=== PATIENT | female | born 1995 | race Caucasian/White ===

== ENCOUNTER 2021-09-29 15:48 | Emergency (ER) | payer OTHER, SELFPAY ==
--- NOTE | 2021-09-29 15:58 | ED.LOWEXIN ---
HPI - Extremity Injury (Lower) General Chief Complaint: Extremity Injury, Lower Stated Complaint: RIGHT FOOT PAIN Time Seen by Provider: 09/29/21 15:51 Source: patient Mode of arrival: ambulatory Limitations: no limitations History of Present Illness HPI Narrative: Ms. Baker is a 26-year-old female patient presenting to the clinic today with possible splinter in the right foot. She reports she was able to get part of the splinter out her right foot. States that she was walking on a pool deck without shoes on when this occurred Tetanus is up-to-date per patient Related Data Allergies Allergy/AdvReac Type Severity Reaction Status Date / Time amoxicillin Allergy Intermediate Hives / Verified 09/29/21 15:55 Red Face Review of Systems Review of Systems: Pertinent positives per HPI. Patient denies any fever, chills, rash, headache, visual changes, dizziness, cough, runny nose, sore throat, shortness of breath, chest pain, palpitations, nausea, vomiting, diarrhea, constipation, abdominal pain, or any urinary issues. PMFSH Comments At the time of my signature, I reviewed and agree with the nursing past medical, surgical, social, and family history. There is no relevant family history pertinent to the patient complaint. Exam Narrative: General: Well-developed, well nourished, in no apparent distress Head: Normocephalic, atraumatic. Cardio: Regular rate and rhythm, s1 and s2 normal, no murmur appreciated. Resp: Clear to auscultation bilaterally, no rhonchi, rales, wheezing or rubs. Integumentary: [place], warm, and dry, intact without lesion, wood splinter foreign body in the right midfoot. Mild redness and tenderness around the puncture wound, no discharge Course Course Emergency Course: Portions of this record may have been created with voice recognition software. Level of Care: Express Care Visit Vital Signs Vital signs: Vital signs reviewed Procedures Foreign Body Removal Foreign Body #1: Foreign Body Removal Date: 09/29/21 Site: right and foot Description of foreign body: other (Wood splinter) Technique: removal with forceps and incision made to facilitate removal Confirmed by:: direct visualization and patient report Complications: none Post-procedure exam: awake, alert Neurovascular: no change from pre-procedure Foreign Body Removal Narrative: Verbal consent obtained for foreign body removal of to the right foot. Area was cleansed with technic care and normal saline. A 25-gauge needle was then used to inject 1 mL of lidocaine without epi around the wound edges. A 15 blade was then used to make a 1 mm incision and forceps was used to remove the foreign body successfully. Area was regular cleansed with technic care and normal saline. Triple antibiotic ointment and Band-Aid applied. Patient tolerated procedure well MDM - Extremity Injury (Lower) MDM Narrative Medical decision making narrative: At the time of visit patient is resting comfortably on the exam table. Procedure was performed to remove foreign body from the right midfoot and was successful. Patient tolerated procedure very well. Supportive measures were discussed with the patient she voiced understanding of discharge instructions and agrees to treatment plan Differential Diagnosis Differential diagnosis: Likely other (Puncture wound to the right foot, foreign body retained) Discharge Plan Discharge Clinical Impression: Puncture wound of foot with foreign body Qualifiers: Encounter type: initial encounter Laterality: right Qualified Code(s): S91.341A - Puncture wound with foreign body, right foot, initial encounter Patient Disposition: Home, Self-Care Condition: Stable Instructions: Antibiotic Form, Puncture Wound in the Foot (ED) Additional Instructions: Wood splinter removed from the bottom of right foot Keep area clean and dry May apply triple antibiotic ointment twice da
[2021-09-29 16:01] VITALS: BP 119/61; PULSE 84; RESP 16; TEMP 36.8; O2SAT 100
== END 2021-09-29 16:28 | disposition home or self-care (01) ==
PROVIDERS: Emergency Provider Nurse Practitioner Family
DX: S91.341A Puncture wound with foreign body, right foot, initial encounter (principal); W45.8XXA Other foreign body or object entering through skin, initial encounter
CPT/HCPCS: 28190; 99212; G0463